=== PATIENT | male | born 1965 | race Caucasian/White ===

== ENCOUNTER → 2020-06-20 | Outpatient (CLI) | payer OTHER ==
[~2020-06-20] MED LIST: ASPI-496 PO; ASPI-515 PO; CEFU500T PO; ENOX120S5 SQ; HYDR2TAB40 PO; LISI-170; METO-93 PO; METO25TA35 PO; TAMS-11 PO; VERA120T13 PO; WARF10TA43 PO-COUM; WARF7.5T46 PO
== END | disposition home or self-care (01) ==
LOC: CFH 07:50
PROVIDERS: ATTEND Internal Medicine Cardiovascular Disease
DX: I71.2 Thoracic aortic aneurysm, without rupture (principal)
CPT/HCPCS: 93306